=== PATIENT | female | born 1950 | race Caucasian/White ===

== ENCOUNTER → 2017-03-02 | Day surgery (SDC) | payer MEDICARE, BC | LOC: MSO 11-17 11:04 | DX: Z12.11 Encounter for screening for malignant neoplasm of colon (principal); K63.5 Polyp of colon; K57.90 Diverticulosis of intestine, part unspecified, without perforation or abscess without bleeding | CPT/HCPCS: 00811; J2704; J3010; J7120 ==

== ENCOUNTER → 2017-11-10 | Outpatient (CLI) | payer MEDICARE, BC | LOC: RAD 14:14 → MAMMO 14:30 | DX: Z13.820 Encounter for screening for osteoporosis (principal); M85.80 Other specified disorders of bone density and structure, unspecified site ==

== ENCOUNTER → 2019-07-16 | Outpatient (CLI) | payer MEDICARE, BC | LOC: RAD 12:55 | DX: S52.501A Unspecified fracture of the lower end of right radius, initial encounter for closed fracture (principal); S52.611A Displaced fracture of right ulna styloid process, initial encounter for closed fracture; W19.XXXA Unspecified fall, initial encounter ==

== ENCOUNTER 2019-10-10 09:00 | Outpatient (RCR) | payer MEDICARE, BC | END 2019-10-10 09:30 | disposition still patient (30) | LOC: OT 09:00 | DX: S52.501A Unspecified fracture of the lower end of right radius, initial encounter for closed fracture (principal); Z98.890 Other specified postprocedural states ==

== ENCOUNTER → 2019-11-23 | Outpatient (CLI) | payer MEDICARE, BC | LOC: MAMMO 08:59 | DX: Z12.31 Encounter for screening mammogram for malignant neoplasm of breast (principal); Z78.0 Asymptomatic menopausal state ==

== ENCOUNTER → 2019-11-23 | Outpatient (CLI) | payer MEDICARE, BC | LOC: MAMMO 08:59 | DX: Z13.820 Encounter for screening for osteoporosis (principal); Z12.31 Encounter for screening mammogram for malignant neoplasm of breast; M85.852 Other specified disorders of bone density and structure, left thigh; Z78.0 Asymptomatic menopausal state ==

== ENCOUNTER → 2020-07-20 | Outpatient (CLI) | payer MEDICARE, BC ==
[~2020-07-20] MED LIST: FLUOXETINE HCL20 MG PO; LEVOTHYROXINE100 MC1 PO; LISINOPRIL10 MG PO
== END ==
LOC: LAB 16:00
DX: N39.0 Urinary tract infection, site not specified (principal)

== ENCOUNTER → 2020-10-26 | Outpatient (CLI) | payer MEDICARE, BC ==
[2020-10-26 09:17] LABS: ALBUMIN 3.9 g/dL (3.4-4.8)
[2020-10-26 09:18] LABS: POTASSIUM 4.3 mmol/L (3.5-5.1)
[2020-10-26 09:19] LABS: CALCIUM 9.1 mg/dL (8.3-10.5)
[2020-10-26 09:20] LABS: TOTAL PROTEIN 7.2 g/dL (6.2-8.1)
[2020-10-26 09:22] LABS: TOTAL BILIRUBIN 0.5 mg/dL (0.2-1.2)
[2020-10-26 09:26] LABS: BASO # 0.07 (0.02-0.10); EOS % 3.9 % (1.0-5.0); HEMATOCRIT 44.8 % (37.0-47.0); HEMOGLOBIN 14.3 g/dL (12.5-16.0); LYMPH# 1.78 (1.50-4.00); MEAN CELL VOLUME 94 fl (78-100); MEAN CORPUSCULAR HEMOGLOBIN 30 pg (27-31); MEAN CORPUSCULAR HGB CONC 32 g/dL (33-37); MEAN PLATELET VOLUME 10.2 fl (7.4-10.4); MONO # 0.43 (0.20-0.80); NEU # 5.05 (1.40-6.50); PLATELET COUNT 331 K/mm3 (130-400); RED BLOOD COUNT 4.78 M/mm3 (4.10-5.30); RED CELL DISTRIBUTION WIDTH 14.3 % (11.5-14.5); WHITE BLOOD COUNT 7.7 K/mm3 (4.8-10.8)
== END ==
LOC: LAB 08:48
PROVIDERS: Family Medicine
DX: Z00.00 Encounter for general adult medical examination without abnormal findings (principal); E03.9 Hypothyroidism, unspecified; E55.9 Vitamin D deficiency, unspecified

== ENCOUNTER → 2020-11-08 | Outpatient (CLI) | payer MEDICARE, BC ==
[~2020-11-08] VITALS: Ht 170.2 cm; Wt 88.6 kg
[2020-11-08 13:20] VITALS: BP 121/84
== END ==
LOC: AMSURD 12:56
DX: M81.0 Age-related osteoporosis without current pathological fracture (principal)
CPT/HCPCS: J0897

== ENCOUNTER → 2020-11-27 | Outpatient (CLI) | payer MEDICARE, BC | LOC: MAMMO 09:04 | DX: Z12.31 Encounter for screening mammogram for malignant neoplasm of breast (principal); N63.20 Unspecified lump in the left breast, unspecified quadrant ==

== ENCOUNTER → 2020-12-03 | Outpatient (CLI) | payer MEDICARE, BC | LOC: RAD 06:57 | DX: N60.02 Solitary cyst of left breast (principal) ==

== ENCOUNTER → 2021-05-28 | Outpatient (CLI) | payer MEDICARE, BC ==
[~2021-05-28] VITALS: Ht 170.2 cm; Wt 88.6 kg
[2021-05-28 14:30] VITALS: BP 134/70
== END ==
LOC: AMSURD 13:56
DX: Z79.899 Other long term (current) drug therapy (principal)
CPT/HCPCS: J0897

== ENCOUNTER → 2021-08-28 | Outpatient (CLI) | payer MEDICARE, BC | LOC: LAB 14:16 | DX: E03.9 Hypothyroidism, unspecified (principal) ==

== ENCOUNTER → 2021-10-29 | Outpatient (CLI) | payer MEDICARE, BC ==
[2021-10-29 09:24] LABS: BASO # 0.05 K/mm3 (0.02-0.10); EOS % 4.3 % (1.0-5.0); HEMATOCRIT 44.8 % (37.0-47.0); HEMOGLOBIN 14.4 g/dL (12.5-16.0); MEAN CELL VOLUME 89 fl (78-100); MEAN CORPUSCULAR HEMOGLOBIN 29 pg (27-31); MEAN CORPUSCULAR HGB CONC 32 g/dL (33-37); MEAN PLATELET VOLUME 9.9 fl (7.4-10.4); MONO # 0.48 K/mm3 (0.20-0.80); NEU # 4.27 K/mm3 (1.40-6.50); PLATELET COUNT 330 K/mm3 (130-400); RED BLOOD COUNT 5.02 M/mm3 (4.10-5.30); RED CELL DISTRIBUTION WIDTH 13.7 % (11.5-14.5); WHITE BLOOD COUNT 6.9 K/mm3 (4.8-10.8)
[2021-10-29 09:31] LABS: ALBUMIN 4.1 g/dL (3.4-4.8); POTASSIUM 4.3 mmol/L (3.5-5.1)
[2021-10-29 09:32] LABS: CALCIUM 9.5 mg/dL (8.3-10.5)
[2021-10-29 09:34] LABS: TOTAL PROTEIN 7.4 g/dL (6.2-8.1)
[2021-10-29 09:36] LABS: TOTAL BILIRUBIN 0.5 mg/dL (0.2-1.2)
== END ==
LOC: LAB 09:09
PROVIDERS: Family Medicine
DX: Z00.00 Encounter for general adult medical examination without abnormal findings (principal); I10 Essential (primary) hypertension; E78.5 Hyperlipidemia, unspecified; E03.9 Hypothyroidism, unspecified; E55.9 Vitamin D deficiency, unspecified; M19.90 Unspecified osteoarthritis, unspecified site; F32.9 Major depressive disorder, single episode, unspecified; E66.9 Obesity, unspecified

== ENCOUNTER → 2021-11-04 | Outpatient (CLI) | payer MEDICARE, BC ==
[~2021-11-04] VITALS: Ht 170.2 cm; Wt 88.6 kg
[2021-11-04 11:24] VITALS: BP 122/66
== END ==
LOC: AMSURD 10:53
DX: Z79.899 Other long term (current) drug therapy (principal)
CPT/HCPCS: J0897

== ENCOUNTER → 2022-04-09 | Day surgery (SDC) | payer MEDICARE, BC | LOC: MSO 01:58 | DX: H25.811 Combined forms of age-related cataract, right eye (principal) | CPT/HCPCS: 00142; J0171; J2250; V2632 ==

== ENCOUNTER → 2022-10-27 | Outpatient (CLI) | payer MEDICARE, BC ==
[2022-10-27 08:42] LABS: BASO # 0.05 K/mm3 (0.02-0.10); EOS # 0.35 K/mm3 (0.04-0.40); EOS % 4.7 % (1.0-5.0); HEMATOCRIT 43.4 % (37.0-47.0); HEMOGLOBIN 13.7 g/dL (12.5-16.0); LYMPH# 1.82 K/mm3 (1.50-4.00); MEAN CELL VOLUME 92 fl (78-100); MEAN CORPUSCULAR HEMOGLOBIN 29 pg (27-31); MEAN CORPUSCULAR HGB CONC 32 g/dL (33-37); MEAN PLATELET VOLUME 10.3 fl (7.4-10.4); MONO # 0.55 K/mm3 (0.20-0.80); NEU # 4.68 K/mm3 (1.40-6.50); PLATELET COUNT 321 K/mm3 (130-400); RED BLOOD COUNT 4.73 M/mm3 (4.10-5.30); RED CELL DISTRIBUTION WIDTH 13.5 % (11.5-14.5); WHITE BLOOD COUNT 7.5 K/mm3 (4.8-10.8)
[2022-10-27 09:03] LABS: POTASSIUM 4.6 mmol/L (3.5-5.1)
[2022-10-27 09:04] LABS: ALBUMIN 3.8 g/dL (3.4-4.8)
[2022-10-27 09:05] LABS: CALCIUM 9.6 mg/dL (8.3-10.5)
[2022-10-27 09:08] LABS: TOTAL BILIRUBIN 0.5 mg/dL (0.2-1.2)
== END ==
LOC: LAB 08:25
PROVIDERS: Family Medicine
DX: Z00.00 Encounter for general adult medical examination without abnormal findings (principal); E78.5 Hyperlipidemia, unspecified; E55.9 Vitamin D deficiency, unspecified; E03.9 Hypothyroidism, unspecified

== ENCOUNTER → 2023-03-16 | Outpatient (CLI) | payer MEDICARE, BC | LOC: LAB 09:37 | DX: E78.2 Mixed hyperlipidemia (principal) ==

== ENCOUNTER → 2023-07-28 | Outpatient (CLI) | payer MEDICARE, BC | LOC: LAB 08:58 | DX: E78.5 Hyperlipidemia, unspecified (principal); E03.9 Hypothyroidism, unspecified ==

== ENCOUNTER → 2023-11-17 | Outpatient (CLI) | payer MEDICARE, BC ==
[2023-11-17 10:02] LABS: BASO # 0.03 K/mm3 (0.02-0.10); EOS # 0.34 K/mm3 (0.04-0.40); EOS % 5.2 % (1.0-5.0); HEMATOCRIT 44.6 % (37.0-47.0); HEMOGLOBIN 14.1 g/dL (12.5-16.0); LYMPH# 2.06 K/mm3 (1.50-4.00); MEAN CELL VOLUME 91 fl (78-100); MEAN CORPUSCULAR HEMOGLOBIN 29 pg (27-31); MEAN CORPUSCULAR HGB CONC 32 g/dL (33-37); MEAN PLATELET VOLUME 9.9 fl (7.4-10.4); MONO # 0.44 K/mm3 (0.20-0.80); PLATELET COUNT 318 K/mm3 (130-400); RED BLOOD COUNT 4.89 M/mm3 (4.10-5.30); RED CELL DISTRIBUTION WIDTH 13.5 % (11.5-14.5); WHITE BLOOD COUNT 6.5 K/mm3 (4.8-10.8)
[2023-11-17 10:11] LABS: CALCIUM 9.1 mg/dL (8.3-10.5)
[2023-11-17 10:13] LABS: TOTAL PROTEIN 6.8 g/dL (6.2-8.1)
[2023-11-17 10:15] LABS: TOTAL BILIRUBIN 0.4 mg/dL (0.2-1.2)
== END ==
LOC: LAB 09:43
PROVIDERS: Family Medicine
DX: E78.5 Hyperlipidemia, unspecified (principal); E55.9 Vitamin D deficiency, unspecified; I10 Essential (primary) hypertension; E03.9 Hypothyroidism, unspecified